=== PATIENT | male | born 1970 | race Caucasian/White ===

== ENCOUNTER 2017-04-09 16:44 | Emergency (ER) | payer OTHER ==
--- NOTE | ~2017-04-09 | EKG ---
PATIENT: ROSY ROSARIO UNIT #: [id number] Ventricular Rate: 66 BPM Atrial Rate: 66 BPM P-R Interval: 186 ms QRS Duration: 118 ms Q-T Interval: 406 ms QTC Calculation(Bezet): 425 ms P Cosby: 55 degrees Calculated R Cosby: -7 degrees Calculated T Cosby: 28 degrees Diagnosis Line: Normal sinus rhythm Diagnosis Line: Incomplete right bundle branch block Diagnosis Line: Borderline ECG Diagnosis Line: No previous ECGs available Diagnosis Line: Confirmed by ELIZABETH GE MD ([id number]) on Diagnosis Line: 04/10/2017 4:03:36 PM INTERPRETING MD: [email or web address]
[2017-04-09 18:21] LABS: BUN/CREATININE RATIO 12.85; CALCIUM SERUM 8.2 mg/dL (8.4-10.2); CREATININE SERUM 0.7 mg/dL (0.6-1.4); GLOM FILT RATE Estimated 111.6 mL/min (>60)
[2017-04-09 18:22] LABS: POTASSIUM 2.8 mmol/L (3.5-5.1)
== END 2017-04-09 22:26 | disposition home or self-care (01) ==
LOC: CED 16:44
PROVIDERS: Emergency Medicine
DX: F10.129 Alcohol abuse with intoxication, unspecified (principal); Z88.0 Allergy status to penicillin; Z88.6 Allergy status to analgesic agent
CPT/HCPCS: 36415; 80048; 93005; 96372; 99284; G0480; J3486